=== PATIENT | male | born 1940 | race Caucasian/White ===

== ENCOUNTER 2016-06-02 03:47 | Inpatient (IN) | payer OTHER ==
[~2016-06-02] VITALS: Ht 171.4 cm; Wt 81.6 kg
[~2016-06-02 03:47] MED LIST: ASPIRIN EC81 M1; LISINOPRIL20 M1
[2016-06-02] MEDS ORDERED: DILAUDID4 M1 PO (12:11)
[2016-06-02] MEDS ORDERED: MS CONTIN15 M2 PO (12:11)
[2016-06-02] MEDS ORDERED: ASPIRIN325 M2 PO (12:12)
[2016-06-02] MEDS ORDERED: COLACE100 M1 PO (12:12)
[2016-06-02] MEDS ORDERED: MIRALAX17 G1 PO (12:12)
--- NOTE | 2016-06-02 12:19 | Patient Discharge Instructions ---
Discharge Instructions General Discharge Information You were seen/treated for: Left hip pain, arthritis You had these procedures: left total hip arthroplasty Special Instructions: Follow-up with Dr. Lopez in 6 weeks. Call the office with any concerns of fever greater than 101.5. Large amounts of discharge or drainage from the wound or inability to bear weight on your operative side. The visiting nurse will remove your sutures/vince in approximately 2 weeks' time if applicable You may weight-bear as tolerated. Activity as tolerated. Keep the dressing dry as possible, you may shower with the dressing in place however, do not take a bath or submerge the wound in water as this will increase her chance of infection. Change the dressings after the shower. You may use dry gauze and tape or large Band-Aids Do not apply any ointments to the wound. Due to a risk of blood clots you'll need to be on aspirin 325 mg twice a day for the next 3 weeks. Take pain medication as directed. Apply ice as needed for 20 minutes every hour for the first few days. Please take Colace and/or MiraLAX [id number] to avoid constipation while you're on narcotic pain medication. Diet Continue normal diet: Yes Activity Full Activity/No Limits: No Activity Self Limited: Yes Pounds, do NOT lift more than: 10 Acute Coronary Syndrome Inclusion Criteria At DC or during hospital stay patient has or had the following: ACS DIAGNOSIS No Discharge Core Measures Meds if any: Prescribed or Continued at Discharge Meds if any: NOT Prescribed or Continued at Discharge Congestive Heart Failure Inclusion Criteria At DC or during hospital stay patient has or had the following: CHF DIAGNOSIS No Discharge Core Measures Meds if any: Prescribed or Continued at Discharge Meds if any: NOT Prescribed or Continued at Discharge Cerebrovascular accident Inclusion Criteria At DC or during hospital stay patient has or had the following: CVA/TIA Diagnosis No Discharge Core Measures Meds if any: Prescribed or Continued at Discharge Meds if any: NOT Prescribed or Continued at Discharge Venous thromboembolism Inclusion Criteria VTE Diagnosis No VTE Type NONE VTE Confirmed by (Test) NONE Discharge Core Measures - Per Current guidelines, there needs to be overlap - treatment for the first 5 days of Warfarin therapy. - If discharged on Warfarin prior to 5 days of - overlap therapy, the patient will need to be - assessed for post discharge needs including - *Post discharge parental anticoagulation - *Warfarin and/or parental anticoagulation education - *Follow up date to check INR post discharge At least 5 days overlap therapy as Inpatient No Meds if any: Prescribed or Continued at Discharge Note: Overlap Therapy is Warfarin and Anticoagulant Meds if any: NOT Prescribed or Continued at Discharge
--- NOTE | 2016-06-02 12:21 | Admission Core Measures ---
Admission Meds I reviewed the following Meds: Current Medications Sig/Chloe Start time Last Medication Dose Stop Time Status Admin Acetaminophen 975 MG ONCE 06/02 0000 NR (Tylenol) 06/02 2358 Aspirin 325 MG BID 06/02 2200 AC (Aspirin) Cefazolin Sodium 2 GM IQ8 06/02 1600 AC (Kefzol) 06/03 0029 N/A 1 UNIT (No Carrier) Cefazolin Sodium 2,000 MG ONCE 06/02 0000 NR (Kefzol-Ancef Inj) 06/02 2358 Lisinopril 20 MG DAILY 06/03 1000 AC (Prinivil) Morphine Sulfate 15 MG BID 06/02 1155 AC (Ms Contin) Omeprazole 20 MG ONCE ONE 06/02 2199 AC (Prilosec) 06/02 2200 Oxycodone HCl 10 MG ONCE 06/02 0000 NR (Roxicodone) 06/02 2358 Acute Coronary Syndrome Inclusion Criteria ACS Diagnosis No Inpatient Core Measures LDL Reminder: If No, please order W/I first 24hr of stay Congestive Heart Failure Inclusion Criteria CHF Diagnosis No Cerebrovascular accident Inclusion Criteria CVA/TIA Diagnosis No Inpatient Core Measures Bedside Swallow Eval Reminder: If BSE failed, place ST order Antithrombotic Reminder: Order Antithrombotic Medication by end of day 2 Antithrombotic Reminder: Document Reason Antithrombotic Not ordered by end of day 2 AFIB/Flutter Reminder: If Present, add to problem list AFIB/Flutter Reminder: Order Anticoag Medication for pts with AFIB/Flutter Atherosclerosis Reminder: If Present, add to problem list LDL Reminder: If No, please order W/I first 24hr of stay PT Order Reminder: If No, please order Venous thromboembolism Inpatient Core Measures VTE Risk Factors: Age > 40, Surgery No [facility] VTE prophylaxis d/t No contraindications No VTE Pharm Prophylaxis d/t No contraindications Inclusion Criteria - Per Current guidelines, there needs to be overlap - treatment for the first 5 days of Warfarin therapy. - Parenteral Anticoagulation (IV or SC) needs to be - given along with Warfarin therapy. VTE Diagnosis No VTE Type NONE VTE Confirmed by (Test) NONE Problem List As ranked by this Provider includes Assessment & Plan 1. Unilateral primary osteoarthritis, left hip HOME MEDS Home Med List Aspirin (Aspirin*) 325 MG TABLET 1 TAB PO BID DVT Docusate Sodium (Colace) 100 MG CAPSULE 1 CAP PO BID CONSTIPATION Hydromorphone HCl (Dilaudid) 4 MG TABLET 1-2 TAB PO Q4H PRN PAIN Morphine Sulfate (Ms Contin) 15 MG TABLET.ER 1 TAB PO BID PAIN Polyethylene Glycol 3350 (Miralax) 17 GRAM POWD.PACK 1 PAC PO DAILY CONSTIPATION
--- NOTE | 2016-06-02 12:24 | Surgical Discharge Summary ---
Visit Information Visit Dates Admission Date: 06/02/16 History of Present Illness Chief Complaint: Left hip pain secondary to osteoarthritis status post left total hip arthroplasty Medical History Other Medical Hx: Coronary disease-stents, hypertension, reflux Hospital Course Course Attending Physician: SALMA FARR MD Primary Care Physician: STERLING LOPEZ MD Hospital Course: Patient was admitted for elective left hip replacement secondary to osteoarthritis. The patient tolerated the procedure well without complications. Postoperatively the patient was monitored and tolerated by mouth intake, vital signs are stable, afebrile. Patient was able to void spontaneously. Pain was well-controlled. Evaluated by physical therapy and deemed stable for discharge home. Plan is to follow up as scheduled and instructed to call with any questions or concerns Allergies: Coded Allergies: No Known Allergies (05/28/16) Disposition Summary Disposition Principal Diagnosis: Primary unilateral left hip osteoarthritis Additional Diagnosis: Status post left total hip arthroplasty Discharge Disposition: home health services Discharge Instructions General Discharge Information Code Status: Full Code Patient's Diet: Regular, heart healthy Patient's Activity: Activity as tolerated Follow-Up Instructions/Appts: Follow-up with Dr. Farr in 6 weeks. Call the office with any concerns of fever greater than 101.5. Large amounts of discharge or drainage from the wound or inability to bear weight on your operative side. The visiting nurse will remove your sutures/vince in approximately 2 weeks' time if applicable You may weight-bear as tolerated. Activity as tolerated. Keep the dressing dry as possible, you may shower with the dressing in place however, do not take a bath or submerge the wound in water as this will increase her chance of infection. Change the dressings after the shower. You may use dry gauze and tape or large Band-Aids Do not apply any ointments to the wound. Due to a risk of blood clots you'll need to be on aspirin 325 mg twice a day for the next 3 weeks. Take pain medication as directed. Apply ice as needed for 20 minutes every hour for the first few days. Please take Colace and/or MiraLAX [id number] to avoid constipation while you're on narcotic pain medication. Medications at Discharge Discharge Medications: Stop taking the following medications: Aspirin (Ecotrin*) 81 MG TABLET.DR Every Day Continue taking these medications: Lisinopril (Lisinopril) 20 MG TABLET Every Day Start taking the following new medications: Aspirin (Aspirin*) 325 MG TABLET 325 Milligram ORAL TWICE DAILY Qty = 30 No Refills Aspirin (Aspirin*) 325 MG TABLET 1 Tablet ORAL TWICE DAILY Qty = 42 No Refills Docusate Sodium (Colace) 100 MG CAPSULE 1 Capsule ORAL TWICE DAILY Qty = 14 No Refills Polyethylene Glycol 3350 (Miralax) 17 GRAM POWD.PACK 1 Packet ORAL DAILY Qty = 7 No Refills Instructions: dissolve in water Hydromorphone HCl (Dilaudid) 4 MG TABLET 1-2 Tablet ORAL Q4H as needed for PAIN Qty = 36 No Refills Morphine Sulfate (Ms Contin) 15 MG TABLET.ER 1 Tablet ORAL TWICE DAILY Qty = 5 No Refills
[2016-06-07] MEDS ORDERED: TOPROL XL25 M1 PO (09:19)
--- NOTE | 2016-06-07 11:46 | Patient Discharge Instructions ---
Discharge Instructions General Discharge Information You were seen/treated for: Left hip pain You had these procedures: 06/07/16 left total hip arthroplasty Watch for these problems: Redness, swelling, fever, signs of infection. Uncontrolled pain, Excessive bleeding. Decreased range of motion or unable to bear weight. Chest pain, shortness of breath. Do not soak the wound: Yes No bath, but you may shower: Yes Other wound care: Daily dry dressing changes or as needed Special Instructions: Follow-up with Dr. Lopez in 6 weeks. Call the office with any concerns of fever greater than 101.5. Large amounts of discharge or drainage from the wound or inability to bear weight on your operative side. The visiting nurse will remove your sutures/vince in approximately 2 weeks' time if applicable You may weight-bear as tolerated. Activity as tolerated. Keep the dressing dry as possible, you may shower with the dressing in place however, do not take a bath or submerge the wound in water as this will increase her chance of infection. Change the dressings after the shower. You may use dry gauze and tape or large Band-Aids Do not apply any ointments to the wound. Due to a risk of blood clots you'll need to be on aspirin 325 mg twice a day for the next 3 weeks. Take pain medication as directed. Apply ice as needed for 20 minutes every hour for the first few days. Please take Colace and/or MiraLAX [id number] to avoid constipation while you're on narcotic pain medication. Diet Continue normal diet: Yes Activity Full Activity/No Limits: No Activity Self Limited: Yes Activity Limited to: Weight bear as tolerated Additional ACTIVITY Info: Daily physical therapy Acute Coronary Syndrome Inclusion Criteria At DC or during hospital stay patient has or had the following: ACS DIAGNOSIS No Discharge Core Measures Meds if any: Prescribed or Continued at Discharge Meds if any: NOT Prescribed or Continued at Discharge Congestive Heart Failure Inclusion Criteria At DC or during hospital stay patient has or had the following: CHF DIAGNOSIS No Discharge Core Measures Meds if any: Prescribed or Continued at Discharge Meds if any: NOT Prescribed or Continued at Discharge Cerebrovascular accident Inclusion Criteria At DC or during hospital stay patient has or had the following: CVA/TIA Diagnosis No Discharge Core Measures Meds if any: Prescribed or Continued at Discharge Meds if any: NOT Prescribed or Continued at Discharge Venous thromboembolism Inclusion Criteria VTE Diagnosis No VTE Type NONE VTE Confirmed by (Test) NONE Discharge Core Measures - Per Current guidelines, there needs to be overlap - treatment for the first 5 days of Warfarin therapy. - If discharged on Warfarin prior to 5 days of - overlap therapy, the patient will need to be - assessed for post discharge needs including - *Post discharge parental anticoagulation - *Warfarin and/or parental anticoagulation education - *Follow up date to check INR post discharge At least 5 days overlap therapy as Inpatient No Meds if any: Prescribed or Continued at Discharge Note: Overlap Therapy is Warfarin and Anticoagulant Meds if any: NOT Prescribed or Continued at Discharge
[2016-06-07] MEDS ORDERED: MIRALAX17 G1 PO (11:48)
[2016-06-07] MEDS ORDERED: MS CONTIN15 M2 PO (11:48)
[2016-06-07] MEDS ORDERED: DILAUDID4 M1 PO (11:48)
[2016-06-07] MEDS ORDERED: ASPIRIN325 M2 PO (11:48)
[2016-06-07] MEDS ORDERED: COLACE100 M1 PO (11:48)
--- NOTE | 2016-06-07 11:50 | Admission Core Measures ---
Admission Meds I reviewed the following Meds: Current Medications Sig/Chloe Start time Last Medication Dose Stop Time Status Admin Metoprolol Succinate 25 MG DAILY 06/08 1000 AC (Toprol XL) Acute Coronary Syndrome Inclusion Criteria ACS Diagnosis No Inpatient Core Measures LDL Reminder: If No, please order W/I first 24hr of stay Congestive Heart Failure Inclusion Criteria CHF Diagnosis No Cerebrovascular accident Inclusion Criteria CVA/TIA Diagnosis No Inpatient Core Measures Bedside Swallow Eval Reminder: If BSE failed, place ST order Antithrombotic Reminder: Order Antithrombotic Medication by end of day 2 Antithrombotic Reminder: Document Reason Antithrombotic Not ordered by end of day 2 AFIB/Flutter Reminder: If Present, add to problem list AFIB/Flutter Reminder: Order Anticoag Medication for pts with AFIB/Flutter Atherosclerosis Reminder: If Present, add to problem list LDL Reminder: If No, please order W/I first 24hr of stay PT Order Reminder: If No, please order Venous thromboembolism Inpatient Core Measures VTE Risk Factors: Age > 40, Surgery No [facility] VTE prophylaxis d/t No contraindications No VTE Pharm Prophylaxis d/t No contraindications Inclusion Criteria - Per Current guidelines, there needs to be overlap - treatment for the first 5 days of Warfarin therapy. - Parenteral Anticoagulation (IV or SC) needs to be - given along with Warfarin therapy. VTE Diagnosis No VTE Type NONE VTE Confirmed by (Test) NONE Problem List As ranked by this Provider includes Assessment & Plan 1. Status post total hip replacement, left HOME MEDS Home Med List Aspirin (Aspirin*) 325 MG TABLET 1 TAB PO DAILY BLOOD THINNER Docusate Sodium (Colace) 100 MG CAPSULE 1 CAP PO BID PRN CONSTIPATION Hydromorphone HCl (Dilaudid) 4 MG TABLET 1-2 TAB PO Q4-6P PRN PAIN Metoprolol Succ XL (Toprol XL) 25 MG TAB 1 TAB PO DAILY HEART HEALTH ( Reported) Morphine Sulfate (Ms Contin) 15 MG TABLET.ER 1 TAB PO BID PAIN Polyethylene Glycol 3350 (Miralax) 17 GRAM POWD.PACK 1 PAC PO DAILY PRN CONSTIPATION
--- NOTE | 2016-06-07 11:51 | Discharge Summary ---
Visit Information Visit Dates Admission Date: 06/07/16 Discharge Date: 06/08/16 Hospital Course Course Attending Physician: SALMA FARR MD Primary Care Physician: JESSICA ARORA,STERLING Starr Hospital Course: Patient admitted to floor following procedure below. Patient ambulated with PT upon arrival to the floor. Patient continued to progress well. Upon discharge patient is afebrile, tolerating diet, pain controlled, ambulating well with rolling walker and PT. Complications: None Allergies: Coded Allergies: No Known Allergies (05/28/16) Significant Procedures: 06/07/16 left total hip arthroplasty Disposition Summary Disposition Principal Diagnosis: Left hip pain Additional Diagnosis: None Discharge Disposition: home health services Discharge Instructions General Discharge Information Code Status: Full Code Patient's Diet: Resume normal diet Patient's Activity: Weightbearing as tolerated Daily physical therapy Follow-Up Instructions/Appts: Call Dr. Farr's office scheduled follow-up appointment. Medications at Discharge Discharge Medications: Stop taking the following medications: Aspirin (Ecotrin*) 81 MG TABLET.DR Every Day Continue taking these medications: Lisinopril (Lisinopril) 20 MG TABLET Every Day Comments: LAST GIVEN 06/08/16 @ 0930 Metoprolol Succ XL (Toprol XL) 25 MG TAB 1 Tablet ORAL DAILY Comments: LAST GIVEN 06/08/16 @ 0930 Start taking the following new medications: Aspirin (Aspirin*) 325 MG TABLET 1 Tablet ORAL DAILY Qty = 60 No Refills Comments: LAST GIVEN 06/08/16 @ 0930 Docusate Sodium (Colace) 100 MG CAPSULE 1 Capsule ORAL TWICE DAILY as needed for CONSTIPATION Qty = 30 No Refills Comments: LAST GIVEN 06/08/16 @ 0930 Polyethylene Glycol 3350 (Miralax) 17 GRAM POWD.PACK 1 Packet ORAL DAILY as needed for CONSTIPATION Qty = 14 No Refills Instructions: dissolve in water Morphine Sulfate (Ms Contin) 15 MG TABLET.ER 1 Tablet ORAL TWICE DAILY Qty = 5 No Refills Hydromorphone HCl (Dilaudid) 4 MG TABLET 1-2 Tablet ORAL Q4-6P as needed for PAIN Qty = 36 No Refills Copies To: JESSICA ARORA,STERLING Starr
--- NOTE | 2016-06-07 13:53 | RADIOLOGY REPORT ---
EXAMINATION: XR HIP, LEFT CLINICAL INFORMATION: Status post left total hip replacement COMPARISON: None TECHNIQUE: AP and crosstable lateral views of the left hip. FINDINGS: Prosthetic components of the left total hip arthroplasty are appropriately aligned. No periprosthetic fracture. Gas from recent surgery is present in the surrounding soft tissues. IMPRESSION: Normal postoperative appearance of the left total hip prosthesis.
--- NOTE | 2016-06-07 14:13 | PN- Orthopedic ---
Subjective Subjective: Post op check Awake, alert post op without complaints Pain is well controlled at this time No nausea, has not seen PT yet Objective Vital Signs and I&Os VSS, afebrile Has not voided spontaneously yet General: alert and oriented times three Chest:clear anteriorly bilaterally, RRR Abd: soft, good bs Ext: warm, no edema, positive sensate, no calf tenderness, good strength 5/5 BLE Wound: dressed, dry, ice pack in place Assessment/Plan Assessment/Plan 76 yo male s/p L LEAH anterior approach pain mgmt PT - wbat asa 325mg po bid for dvt ppx post op abx - ppx await discharge clearance Core Measures/Miscellaneous Venous Thromboembolism VTE Risk Factors: Age > 40, Surgery VTE Contraindications: No Contraindications VTE Diagnosis: No VTE Type: NONE VTE Confirmed by (Test): NONE Beta Elise Is Beta Elise a Home Med? Yes If Yes, Was This Ordered Today? Yes Antibiotics Is Patient on Antibiotics? Yes If Yes: prophylaxis
[2016-06-07 14:15] VITALS: BP 128/88
--- NOTE | 2016-06-07 17:27 | Operative Report ---
Operative/Inv Procedure Report Surgery Date: 06/07/16 Name of Procedure: Left total hip replacement Pre-Operative Diagnosis: Primary left hip DJD Post-Operative Diagnosis: Same Estimated Blood Loss: 350 Surgeon/Charge Entry Specialist: YORDAN ARORA,SALMA Montelongo Anesthesia: block Operative/Procedure Note Note: Description of Procedure: The patient was taken to the operating room and positively identified. After induction of spinal anesthesia and administration of appropriate pre-operative antibiotics, the patient was positioned supine on the operating room table and all bony prominences were well padded. After performing a surgical timeout, the left lower extremity was prepped and draped in the usual sterile fashion. A direct anterior approach was made to the left hip. The incision was carried sharply through superficial soft tissues to the level of the fascia. Meticulous hemostasis was maintained with Bovie electocautery. The fascia over the tensor fascia ayaan muscle was opened sharply and the interval between the TFL and the sartorius was entered bluntly taking care to stay lateral to the lateral femoral cutaneous nerve. Retractors were placed around the femoral neck and the pericapsular fat was identified. The ascending branches of the lateral femoral circumflex vessels were identified and carefully coagulated. The pericapsular fat and anterior capsule were then resected. A napkin ring osteotomy was performed and the femoral head was removed without difficulty. Attention was then turned to the acetabulum. After appropriate placement of retractors, the acetabulum was exposed. Soft tissue was cleaned from the acetabular margin and notch. Overhanging osteophytes were removed and the teardrop was exposed. The acetabulum was then sequentially reamed to accept a 60 mm [place] Tritanium hemispherical solid back shell. This was impacted into place in the appropriate position and fitted with a 36 mm Trident X3 zero degree polyethylene insert. Attention was then turned to the femur. After performing the appropriate ligament releases, the proximal femur was exposed. It was then sequentially broached to accept a size 5 [place] Anato stem. This was trialed for leg length and stability. The trial component was removed and the final component was impacted into place. The trunnion was carefully cleaned and fit with a 36 mm, + 0 Biolox delta ceramic femoral head. The hip was reduced and put through a full range of motion and found to be stable. The articular space was then irrigated with sterile saline. The periarticular soft tissues were infilitrated with Marcaine. The fascial layer was closed with interrupted #1 vicryl suture and the skin was re-approximated with interrupted 2 -0 vicryl. The skin was closed with a running 3-0 V-Lock suture. Steri-strips and a sterile dressing were applied. The patient was awakened and taken to the recovery room in satisfactory condition.
[2016-06-07 18:52] VITALS: BP 120/80
[2016-06-07 20:08] VITALS: BP 118/68
[2016-06-07 23:06] VITALS: BP 121/69
[2016-06-08 03:29] VITALS: BP 132/80
[2016-06-08 08:09] LABS: ABSOLUTE BASOPHIL COUNT 0 /CUMM (0.0-0.2); ABSOLUTE EOSINOPHIL COUNT 0 /CUMM (0.0-0.7); ABSOLUTE GRANULOCYTE CT 8.4 /CUMM (1.4-6.5); BASOPHIL % 0.2 % (0.0-2.0); EOSINOPHIL % 0.4 % (0-5); GRANULOCYTE % 80.6 % (42.2-75.2); MEAN CORPUSCULAR HGB 28.5 PG (27.0-31.0); MEAN CORPUSCULAR HGB CONC 33.6 G/DL (33.0-37.0); MEAN CORPUSCULAR VOLUME 84.8 FL (80.0-94.0); MEAN PLATELET VOLUME 8.3 FL (7.4-10.4); PLATELET COUNT 146 /CUMM (130-400); RBC DISTRIBUTION WIDTH 13.8 % (11.5-14.5); RED BLOOD CELL CT 4.36 /CUMM (4.70-6.10); WHITE BLOOD CELL COUNT 10.4 /CUMM (4.8-10.8)
--- NOTE | 2016-06-08 08:27 | PN- Orthopedic ---
Subjective Subjective: NAEO. Patient without new c/o. Pain controlled overnight. No numbness/ tingling in LLE. Tolerating diet without n/v. +flatus, no BM. OOB and ambulating with PT. Voiding spontaneously. Denies CP/SOB. Objective Vital Signs and I&Os Vital Signs Date Time Temp Pulse Resp B/P Pulse O2 O2 Flow FiO2 Ox Delivery Rate 06/08 0329 98.2 79 18 132/80 96 Room Air 06/07 2306 97.6 87 19 121/69 94 Room Air 06/07 2008 97.7 90 18 118/68 95 Room Air 06/07 1852 98.6 91 18 120/80 97 Room Air 06/07 1415 97.5 80 18 128/88 98 Room Air Intake & Output 06/08 1600 06/08 0800 06/08 0000 06/07 1600 06/07 0800 06/07 0000 Intake Total 975 1175 Output Total 350 1100 600 Balance -350 -125 575 Intake, IV 225 375 Intake, Oral 750 800 Output, Urine 350 1100 600 Patient 180 lb Weight Physical Exam: General: NAD, comfortable, A&Ox3 Chest: CTAB, no wheezes, no rales. RRR Abdomen: soft, nontender, nondistended. Ext: Left hip dressing clean and intact with mild surrounding ecchymosis. Mild left thigh swelling but compartments soft. No calve swelling/TTP, neurovascularly intact bilateral lower extremities Current Medications: Current Medications Sig/Chloe Start time Last Medication Dose Route Stop Time Status Admin Acetaminophen 650 MG Q4P PRN 06/07 1500 AC PO Aspirin 325 MG BID 06/07 2200 AC 06/07 PO 2228 Cefazolin Sodium 2 GM IQ8 06/07 1600 DC 06/07 N/A 1 UNIT IV 06/08 0029 2351 Dexamethasone 4 MG .STK-MED ONE 06/07 1021 DC IM 06/07 1022 Dextrose/Sodium 1,000 ML .[id number] 06/07 1500 DC 06/08 Chloride IV 0312 Docusate Sodium 100 MG DAILY 06/07 1139 AC 06/07 PO 1724 Fentanyl Citrate 100 MCG .STK-MED ONE 06/07 1020 DC IM 06/07 1021 Hydromorphone HCl 2 MG Q4P PRN 06/07 1500 AC 06/08 PO 0318 Hydromorphone HCl 4 MG Q4P PRN 06/07 1500 AC PO Hydromorphone HCl 2 MG .STK-MED ONE 06/07 1315 DC IM 06/07 1316 Lisinopril 20 MG DAILY 06/08 1000 AC PO Metoprolol Succinate 25 MG DAILY 06/08 1000 AC PO Midazolam HCl 2 MG .STK-MED ONE 06/07 1021 DC IM 06/07 1022 Morphine Sulfate 2 MG Q2P PRN 06/07 1500 AC IV Ondansetron HCl 4 MG Q6P PRN 06/07 1500 AC IV Oxycodone HCl 10 MG .STK-MED ONE 06/07 0937 DC PO 06/07 0938 Polyethylene Glycol 17 GM DAILY NEEDED PRN 06/07 1500 AC PO Tranexamic Acid 2,000 MG .STK-MED ONE 06/07 1020 DC IV 06/07 1021 Results Last 48 Hours of Labs: Laboratory Tests 06/08 0650 Chemistry Sodium Pending Potassium Pending Chloride Pending Carbon Dioxide Pending Anion Gap Pending BUN Pending Creatinine Pending BUN/Creatinine Ratio Pending Hematology CBC w Diff Pending WBC Pending RBC Pending Hgb Pending Hct Pending MCV Pending MCH Pending RDW Pending Plt Count Pending MPV Pending PUBS MCHC Pending Assessment/Plan Assessment/Plan 76yo M POD#1 status post left total hip arthroplasty. AVSS, patient dressing well. - Pain control - PRN zofran - Bowel regimen - ASA 325mg PO BID - Abx complete - I/O's - DC IVF - OOB and ambulate with PT, WBAT - ALPS, TEDS - DC home today if cleared by PT - Will d/w attending Core Measures/Miscellaneous Venous Thromboembolism VTE Risk Factors: Age > 40, Surgery VTE Contraindications: No Contraindications VTE Diagnosis: No VTE Type: NONE VTE Confirmed by (Test): NONE Beta Elise Is Beta Elise a Home Med? Yes If Yes, Was This Ordered Today? Yes Antibiotics Is Patient on Antibiotics? No
== END 2016-06-08 13:40 | disposition home health service (06) | DRG 470 ==
LOC: ENRESERVTM → ENRESERVDT → SDA 03:47 → 2NB 06-07 04:22 → SDA 06-07 04:22 → ENPENDDIS 06-07 04:22 → SDA 06-07 07:00 → 2NB 06-07 14:10 → SDA 06-08 07:00 → 2NB 06-08 13:40
PROVIDERS: Physician Assistant Surgical; ADMIT Orthopaedic Surgery
PROC: 0SRB04A Replacement of Left Hip Joint with Ceramic on Polyethylene Synthetic Substitute, Uncemented, Open Approach (ICD-10-PCS; principal; 2016-06-07)
DX: M16.12 Unilateral primary osteoarthritis, left hip (principal); I10 Essential (primary) hypertension; I25.10 Atherosclerotic heart disease of native coronary artery without angina pectoris
CPT/HCPCS: 2NBSP; 36415; 73502-LT; 82436; 88304; 97110-GO; 97116-GO; 97161-GP; 97530-GO; J0690; J0735; J1100; J2250; J2405; J7042